=== PATIENT | male | born 1985 | race Caucasian/White ===

== ENCOUNTER 2020-07-26 21:00 | Emergency (ER) | payer SELFPAY ==
[2020-07-26] MEDS ORDERED: Furosemide 40 MG/4 ML VIAL IVPUSH ONE (21:35)
--- NOTE | 2020-07-26 21:40 | EDM.PDOC ---
ED HPI GENERAL MEDICAL PROBLEM - General Chief Complaint: General Stated Complaint: RETAINING WATER/BLURRY VISION/TYPE 1 DIABETIC Time Seen by Provider: 07/26/20 21:18 Source of Information: Reports: Patient History Limitations: Reports: No Limitations - History of Present Illness INITIAL COMMENTS - FREE TEXT/NARRATIVE: Mr. Cruz is a very pleasant 35-year-old gentleman with a past medical history significant for type 1 diabetes, who now presents the ED stating that he has developed progressively worsening edema of both of his lower extremities, extending to his scrotum, to his back, and even to his abdomen over the past month. He also reports having a headache on and off for the past 3 days, for which she has taken [id number]-[id number] ibuprofen 800 mg, and blurry vision since yesterday. No recent fever, cough, chest pain, palpitations, nausea, vomiting, or constipation, although he states that he had a small amount of watery diarrhea today. He denies having dyspnea, but he states that it feels like he has to work harder to breathe, especially when he is supine. He is able to sleep flat. His urine output has not changed from his normal. The patient states that he has had edema of his lower extremities in the past, although resolved after about 2 days. An ultrasound was negative. The patient states that he checks his blood glucose about every 2 hours, with recent Accu-Cheks in the 1 50-250 range, which is normal for him. The patient states that he has been trying to drink more water recently. He states that he also drinks energy drinks and Diet Mountain Dew. Here in the ED, the patient's initial BP is found to be elevated at 207/137, with tachycardia of 105 bpm. He is afebrile, saturating 99% on room air. The patient does not have a PCP. He has not received an influenza vaccine this season, and declined an offer to receive one here today. Headache Pain Score (Numeric/FACES): 8 - Related Data Allergies Allergy/AdvReac Type Severity Reaction Status Date / Time No Known Allergies Allergy Verified 07/26/20 21:15 Home Meds: Home Meds Furosemide [Lasix] 1 tab PO QPM #14 tablet 07/26/20 [Rx] Insulin Glargine,Hum.Rec.Anlog [Lantus Solostar] 10 units SUBCUT BEDTIME 07/26/20 [History] Insulin Lispro [Humalog] 0 units SUBCUT TID 07/26/20 [History] Potassium Chloride 1 tab PO QPM #14 tablet.er 07/26/20 [Rx] Past Medical History Endocrine/Metabolic History: Reports: Diabetes, Type I - Past Surgical History GI Surgical History: Reports: Hernia, Inguinal (2 yrs old) Social & Family History - Tobacco Use Tobacco Use Within Last Twelve Months: Smokeless Tobacco (Chews 1/2 can per day, down from over 1 can per day) - Alcohol Use Alcohol Use History: Yes Alcohol Use Frequency: Socially - Recreational Drug Use Recreational Drug Use: Yes Drug Use in Last 12 Months: No Recreational Drug Type: Reports: Marijuana/Hashish (last smoked when 14 yrs old) - Living Situation & Occupation Living situation: Reports: , with Family Occupation: Employed ([employer]) ED ROS GENERAL - Review of Systems Review Of Systems: Comprehensive ROS is negative, except as noted in HPI. ED EXAM, GENERAL - Physical Exam Exam: See Below Exam Limited By: No Limitations General Appearance: Alert, WD/WN, No Apparent Distress Eye Exam: Bilateral Eye: EOMI, Normal Inspection Ears: Normal External Exam, Hearing Grossly Normal Nose: Normal Inspection Throat/Mouth: Normal Inspection, Normal Lips, Normal Voice, No Airway Compromise Head: Atraumatic, Normocephalic Neck: Normal Inspection, Full Range of Motion Respiratory/Chest: No Respiratory Distress, Lungs Clear, Normal Breath Sounds, No Accessory Muscle Use. No: Decreased Breath Sounds, Crackles, Rhonchi, Wheezing, Stridor, Prolonged Expiration Cardiovascular: Normal Peripheral Pulses, Regular Rate, Rhythm, No Gallop, No JVD, No Murmur, No Rub Peripheral Pulses: 3+: Radial (L), Radial (R) GI/Abdominal: Normal Bowel Sounds, Soft, Non-Tender, No Organomegaly, No Distention, No Abnormal Bruit, No Mass, Other (No appreciable abdominal wall edema) (Male) Exam: Scrotal Swelling (substantial) Back Exam: Full Range of Motion, Other (1+ pitting edema to the lower back, bilaterally) Extremities: Normal Range of Motion, Non-Tender, Normal Capillary Refill, Other (2+ lateral pretibial edema. 1+ edema to the thighs bilaterally.) Neurological: Alert, Oriented, Normal Cognition, No Motor/Sensory Deficits Psychiatric: Normal Affect Skin Exam: Warm, Dry, Intact, Normal Color, No Rash #1 Interpretation EKG Date: 07/26/20 Time: 21:45 Rhythm: NSR Rate (Beats/Min): 90 [place]: Normal P-Wave: Present QRS: Normal ST-T: Normal QT: Normal Comparison: NA - No Prior EKG Course - Vital Signs Last Recorded V/S: Last Vital Signs Temp 36.8 C 07/26/20 21:12 Pulse 105 H 07/26/20 21:12 Resp 16 07/26/20 21:12 BP 207/137 H 07/26/20 21:12 Pulse Ox 99 07/26/20 21:12 - Orders/Labs/Meds Orders: Active Orders 24 hr Category Date Time Status Chest 2V [CR] Stat Exams 07/26/20 21:31 Taken Labs: Laboratory Tests 07/26/20 07/26/20 07/26/20 Range/Units 21:35 21:35 21:35 WBC 6.86 (4.23-9.07) K/mm3 RBC 2.68 L (4.63-6.08) M/mm3 Hgb 8.1 L (13.7-17.5) gm/dl Hct 24.9 L (40.1-51.0) % MCV 92.9 H (79.0-92.2) fl MCH 30.2 (25.7-32.2) pg MCHC 32.5 (32.2-35.5) g/dl RDW Std Deviation 44.9 H (35.1-43.9) fL Plt Count 179 (163-337) K/mm3 MPV 8.1 L (9.4-12.3) fl Neutrophils % (Manual) 72 H (40-60) % Band Neutrophils % 0 (0-10) % Lymphocytes % (Manual) 23 (20-40) % Atypical Lymphs % 0 % Monocytes % (Manual) 2 (2-10) % Eosinophils % (Manual) 2 (0.8-7.0) % Basophils % (Manual) 1 (0.2-1.2) Platelet Estimate Adequate RBC Morph Comment Normal D-Dimer, Quantitative 0.90 H (0.19-0.50) mg/L Sodium 137 (136-145) mEq/L Potassium 5.0 (3.5-5.1) mEq/L Chloride 107 (98-107) mEq/L Carbon Dioxide 24 (21-32) mEq/L Anion Gap 11.0 (5-15) BUN 43 H (7-18) mg/dL Creatinine 2.5 H (0.7-1.3) mg/dL Est Cr Clr Drug Dosing TNP Estimated GFR (MDRD) 29 (>60) mL/min BUN/Creatinine Ratio 17.2 (14-18) Glucose 391 H (74-106) mg/dL POC Glucose (70-105) mg/dL Lactic Acid (0.4-2.0) mmol/L Calcium 7.9 L (8.5-10.1) mg/dL Magnesium 1.9 (1.8-2.4) mg/dl Total Bilirubin 0.2 (0.2-1.0) mg/dL AST 25 (15-37) U/L ALT 21 (16-63) U/L Alkaline Phosphatase 65 (46-116) U/L C-Reactive Protein 0.3 (<1.0) mg/dL NT-Pro-B Natriuret Pep (0-125) pg/mL Total Protein 5.2 L (6.4-8.2) g/dl Albumin 2.1 L (3.4-5.0) g/dl Globulin 3.1 gm/dL Albumin/Globulin Ratio 0.7 L (1-2) TSH 3rd Generation 3.786 H (0.358-3.74) uIU/mL Urine Color (Yellow) Urine Appearance (Clear) Urine pH (5.0-8.0) Ur Specific [place] (1.005-1.030) Urine Protein (Negative) Urine Glucose (UA) (Negative) Urine Ketones (Negative) Urine Occult Blood (Negative) Urine Nitrite (Negative) Urine Bilirubin (Negative) Urine Urobilinogen (0.2-1.0) Ur Leukocyte Esterase (Negative) Urine RBC (0-5) /hpf Urine WBC (0-5) /hpf Ur Squamous Epith Cells (0-5) /hpf Urine Bacteria (FEW) /hpf Urine Mucus (FEW) /hpf Ketones (0.0-0.3) mM SARS-CoV-2 RNA (CLEMENTE) (NEGATIVE) 07/26/20 07/26/20 07/26/20 Range/Units 21:35 21:35 21:41 WBC (4.23-9.07) K/mm3 RBC (4.63-6.08) M/mm3 Hgb (13.7-17.5) gm/dl Hct (40.1-51.0) % MCV (79.0-92.2) fl MCH (25.7-32.2) pg MCHC (32.2-35.5) g/dl RDW Std Deviation (35.1-43.9) fL Plt Count (163-337) K/mm3 MPV (9.4-12.3) fl Neutrophils % (Manual) (40-60) % Band Neutrophils % (0-10) % Lymphocytes % (Manual) (20-40) % Atypical Lymphs % % Monocytes % (Manual) (2-10) % Eosinophils % (Manual) (0.8-7.0) % Basophils % (Manual) (0.2-1.2) Platelet Estimate RBC Morph Comment D-Dimer, Quantitative (0.19-0.50) mg/L Sodium (136-145) mEq/L Potassium (3.5-5.1) mEq/L Chloride (98-107) mEq/L Carbon Dioxide (21-32) mEq/L Anion Gap (5-15) BUN (7-18) mg/dL Creatinine (0.7-1.3) mg/dL Est Cr Clr Drug Dosing Estimated GFR (MDRD) (>60) mL/min BUN/Creatinine Ratio (14-18) Glucose (74-106) mg/dL POC Glucose 393 H (70-105) mg/dL Lactic Acid (0.4-2.0) mmol/L Calcium (8.5-10.1) mg/dL Magnesium (1.8-2.4) mg/dl Total Bilirubin (0.2-1.0) mg/dL AST (15-37) U/L ALT (16-63) U/L Alkaline Phosphatase (46-116) U/L C-Reactive Protein (<1.0) mg/dL NT-Pro-B Natriuret Pep 893 H (0-125) pg/mL Total Protein (6.4-8.2) g/dl Albumin (3.4-5.0) g/dl Globulin gm/dL Albumin/Globulin Ratio (1-2) TSH 3rd Generation (0.358-3.74) uIU/mL Urine Color (Yellow) Urine Appearance (Clear) Urine pH (5.0-8.0) Ur Specific [place] (1.005-1.030) Urine Protein (Negative) Urine Glucose (UA) (Negative) Urine Ketones (Negative) Urine Occult Blood (Negative) Urine Nitrite (Negative) Urine Bilirubin (Negative) Urine Urobilinogen (0.2-1.0) Ur Leukocyte Esterase (Negative) Urine RBC (0-5) /hpf Urine WBC (0-5) /hpf Ur Squamous Epith Cells (0-5) /hpf Urine Bacteria (FEW) /hpf Urine Mucus (FEW) /hpf Ketones 0.02 (0.0-0.3) mM SARS-CoV-2 RNA (CLEMENTE) (NEGATIVE) 07/26/20 07/26/20 07/26/20 Range/Units 21:42 21:50 21:57 WBC (4.23-9.07) K/mm3 RBC (4.63-6.08) M/mm3 Hgb (13.7-17.5) gm/dl Hct (40.1-51.0) % MCV (79.0-92.2) fl MCH (25.7-32.2) pg MCHC (32.2-35.5) g/dl RDW Std Deviation (35.1-43.9) fL Plt Count (163-337) K/mm3 MPV (9.4-12.3) fl Neutrophils % (Manual) (40-60) % Band Neutrophils % (0-10) % Lymphocytes % (Manual) (20-40) % Atypical Lymphs % % Monocytes % (Manual) (2-10) % Eosinophils % (Manual) (0.8-7.0) % Basophils % (Manual) (0.2-1.2) Platelet Estimate RBC Morph Comment D-Dimer, Quantitative (0.19-0.50) mg/L Sodium (136-145) mEq/L Potassium (3.5-5.1) mEq/L Chloride (98-107) mEq/L Carbon Dioxide (21-32) mEq/L Anion Gap (5-15) BUN (7-18) mg/dL Creatinine (0.7-1.3) mg/dL Est Cr Clr Drug Dosing Estimated GFR (MDRD) (>60) mL/min BUN/Creatinine Ratio (14-18) Glucose (74-106) mg/dL POC Glucose (70-105) mg/dL Lactic Acid 0.4 (0.4-2.0) mmol/L Calcium (8.5-10.1) mg/dL Magnesium (1.8-2.4) mg/dl Total Bilirubin (0.2-1.0) mg/dL AST (15-37) U/L ALT (16-63) U/L Alkaline Phosphatase (46-116) U/L C-Reactive Protein (<1.0) mg/dL NT-Pro-B Natriuret Pep (0-125) pg/mL Total Protein (6.4-8.2) g/dl Albumin (3.4-5.0) g/dl Globulin gm/dL Albumin/Globulin Ratio (1-2) TSH 3rd Generation (0.358-3.74) uIU/mL Urine Color Yellow (Yellow) Urine Appearance Clear (Clear) Urine pH 6.0 (5.0-8.0) Ur Specific [place] > or = 1.030 (1.005-1.030) Urine Protein 3+ H (Negative) Urine Glucose (UA) 2+ H (Negative) Urine Ketones Negative (Negative) Urine Occult Blood 2+ H (Negative) Urine Nitrite Negative (Negative) Urine Bilirubin Negative (Negative) Urine Urobilinogen 0.2 (0.2-1.0) Ur Leukocyte Esterase Negative (Negative) Urine RBC 10-20 H (0-5) /hpf Urine WBC 5-10 H (0-5) /hpf Ur Squamous Epith Cells 0-5 (0-5) /hpf Urine Bacteria Few (FEW) /hpf Urine Mucus Few (FEW) /hpf Ketones (0.0-0.3) mM SARS-CoV-2 RNA (CLEMENTE) Negative (NEGATIVE) Meds: Medications Discontinued Medications Generic Name Dose Route Start Last Admin Trade Name Freq PRN Reason Stop Dose Admin Furosemide 40 mg 07/26/20 21:35 07/26/20 21:57 Lasix IVPUSH 07/26/20 21:36 40 mg NOW ONE Administration - Re-Assessments/Exams Free Text/Narrative Re-Assessment/Exam: 07/26/20 21:36 As above, the patient, who has type 1 diabetes, now presents with progressively worsening lower extremity edema that has extended up to his scrotum, lower back, and possibly to his lower abdominal wall. He also experienced some blurry vision yesterday, and has had a headache on and off for the past few days. He states that his blood glucoses have been normal for him. He acknowledges that he drinks an excessive amount of fluids, including energy drinks, Diet Mountain Dew and water. On examination, he has about 2+ pitting edema pretibially bilaterally, with subtle edema to his thighs, however, his scrotum is substantially edematous, and he has some pitting edema to his lower back, although I do not find any to his lower abdomen. His lungs are clear to auscultation bilaterally. The cause of his fluid retention is not immediately clear, however, I am concerned about right-sided heart failure or renal failure. A coagulopathy is less likely. I have ordered a work-up that includes an Accu-Chek, several blood tests, a urinalysis, a chest x-ray, an ECG, and, because the patient will likely require admission for further evaluation, a swab for the SARS-CoV-2 virus. In the meantime, the patient will be started on IV Lasix. 07/26/20 22:20 Two-view chest radiograph appears to be grossly normal. The cardiac silhouette is within normal limits. No pulmonary vascular congestion. No pleural effusions. No focal infiltrate. No pneumothorax. Formal read per the Radiologist pending. 07/26/20 22:58 The patient's CBC is remarkable for a slightly macrocytic, normochromic anemia of 8.1/24.9, with the remainder of his CBC being unremarkable. His CMP is remarkable for a BUN/Cr elevated at 43/2.5, with the remainder of his CMP being unremarkable. His magnesium level is within normal limits at 1.9. His lactic acid level is within normal limits at 0.4. His serum ketones are within normal limits at 0.02. His TSH is elevated at 3.789. His CRP is within normal limits at 0.3. His D-dimer is elevated at 0.90. His pro-BNP is modestly elevated at 893. His urinalysis is remarkable for 2+ glucose, 3+ protein, 2+ occult blood with 10-20 RBCs, leukocyte esterase negative with 5-10 WBCs, nitrate negative with few bacteria, and 0-5 squamous epithelial cells. No mention of casts. His swab for the SARS-CoV-2 virus is negative. 07/26/20 23:15 Test results discussed with the patient. It appears that the patient's edema is due to renal failure. His elevated D-dimer and BNP are almost certainly due to his renal failure, and not a PE or actual CHF. I am not recommending a CT angiogram of the chest. I do not see an indication for admission to the hospital, however, the patient will need to see a H[employer] Operator; a renal biopsy may be indicated. He states that he is from [place], [place], working in this area until 08/07/2020. The plan will be for me to submit prescriptions for furosemide and KCl, that he will take once a day. He is to decrease his fluid intake to 1.5 L/day, and, in particular, stop drinking the energy drinks and Diet Mountain Dew. He is to call one or both of the hospitals in [place] tomorrow, in order to get a referral to a [employer]. Even though it is a 4- hour drive back to [place], I recommended that he follow-up with a H[employer] Operator at the next available appointment. I feel this is a better solution than referring him to one in [place], since he will likely be under the care of the Hogshead Press Operator for years to come. With respect to the patient's elevated blood pressure, I am not going to start him on a separate antihypertensive, since I don't know how he will react to the furosemide. One antihypertensive at a time. Departure - Departure Time of Disposition: 23:19 Disposition: Home, Self-Care 01 Condition: Good Clinical Impression: Renal failure, Hyperglycemia due to type 1 diabetes mellitus, Elevated TSH - Discharge Information *PRESCRIPTION DRUG MONITORING PROGRAM REVIEWED*: Not Applicable *COPY OF PRESCRIPTION DRUG MONITORING REPORT IN PATIENT BASILIA: Not Applicable Prescriptions: Furosemide [Lasix] 1 tab PO QPM #14 tablet Potassium Chloride 1 tab PO QPM #14 tablet.er Instructions: Hyperglycemia, [id number], Chronic Kidney Disease, Adult, [id number], Type 1 Diabetes Mellitus, Self Care, Adult, [id number] Referrals: PCP,None [Primary Care Provider] - Forms: ED Department Discharge Additional Instructions: You were seen in the emergency room for progressively worsening swelling of your lower extremities, up to your scrotum, and lower back. Work-up in the ER included numerous blood tests, a urinalysis, a swab for the SARS-CoV-2 virus, a chest x-ray, and an ECG. Your blood work found you to be moderately anemic, that you are in renal failure, and your neuroid stimulating hormone mildly elevated. Your anemia is most likely due to your renal failure. The cause of your renal failure is not known at this time, however, it is most likely the reason why you are retaining fluid. You have been started on the diuretic furosemide (Lasix), and prescriptions for both furosemide and potassium chloride have been sent to the [facility], located just south and across the [address] from [facility]. Take 1 tablet of both furosemide and potassium chloride each evening, starting tomorrow evening, 07/27/2020, as prescribed. As discussed, we recommend that you decrease your fluid intake to about 1.5 quarts per day. We strongly recommend that you start by discontinuing drinking energy drinks and Diet Mountain Dew. As discussed, it is imperative that you be evaluated by a H[employer] Operator (kidney doctor). We recommend that you call one or both of the hospitals in [place] tomorrow morning, to be referred to a H[employer] Operator and make an appointment to be seen as soon as possible. If any other problems, please do not hesitate to return to the ER. Sepsis Event Note (ED) - Evaluation Sepsis Screening Result: No Definite Risk - Focused Exam Vital Signs: Vital Signs Temp Pulse Resp BP Pulse Ox 07/26/20 21:12 36.8 C 105 H 16 207/137 H 99 - My Orders Last 24 Hours: My Active Orders 07/26/20 21:31 Chest 2V [CR] Stat - Assessment/Plan Last 24 Hours: My Active Orders 07/26/20 21:31 Chest 2V [CR] Stat
--- NOTE | 2020-07-27 08:45 | CR ---
Chest: 2 views of the chest were obtained. Comparison: No prior chest imaging is available. Findings: Heart size and mediastinum: Within normal limits. No mediastinal mass is seen. Lungs: No acute abnormality is definitely appreciated. No pleural effusions are seen. Osseous: No acute osseous findings are seen. Impression: 1. Nothing acute seen on 2 view chest x-ray. Diagnostic code #1
== END 2020-07-27 | disposition home or self-care (01) ==
LOC: JD.ED 21:00
DX: E10.65 Type 1 diabetes mellitus with hyperglycemia (principal); R94.6 Abnormal results of thyroid function studies; N19 Unspecified kidney failure; F17.220 Nicotine dependence, chewing tobacco, uncomplicated; Z20.828 Contact with and (suspected) exposure to other viral communicable diseases; Z79.899 Other long term (current) drug therapy
CPT/HCPCS: 36415; 71046; 80053; 81001; 82009; 82962; 83605; 83735; 83880; 84443; 85007; 85027; 85379; 86140; 87635; 93005; 96374; 99284; J1940; 93010; U0002